=== PATIENT | female | born 1960 | race Asian ===

== ENCOUNTER 2018-06-23 11:00 | Emergency (ER) | payer OTHER ==
[~2018-06-23] VITALS: Ht 152.4 cm; Wt 58.0 kg
--- NOTE | 2018-06-23 11:48 | NUR ---
NO ANSWER FROM TRIAGE
--- NOTE | 2018-06-23 12:02 | NUR ---
NO ANSWER FROM SARANYA
[2018-06-23 12:03] VITALS: BP 170/78
--- NOTE | 2018-06-23 13:01 | NUR ---
[facility]
[2018-06-23 13:36] LABS: BASOPHILS # (AUTO) 0.05 x10^3/uL (0-0.1); BASOPHILS % (AUTO) 1 % (0-1); EOSINOPHILS # (AUTO) 0.27 x10^3/uL (0-0.4); EOSINOPHILS % (AUTO) 4 % (1-7); LYMPHOCYTES # (AUTO) 1.92 x10^3/uL (1-3.4); LYMPHOCYTES % (AUTO) 29 % (22-44); MD NO; MEAN CORPUSCULAR HEMOGLOBIN 28.7 pg (27.0-34.8); MEAN CORPUSCULAR HGB CONC 34.2 g/dL (32.4-35.8); MEAN CORPUSCULAR VOLUME 83.7 fL (80-100); MEAN PLATELET VOLUME 6.6 fL (7.4-10.4); MONOCYTES # (AUTO) 0.66 x10^3/uL (0.2-0.8); MONOCYTES % (AUTO) 10 % (2-9); NEUTROPHILS # (AUTO) 3.72 x10^3/uL (1.8-6.8); NEUTROPHILS % (AUTO) 56 % (42-75); PLATELET COUNT 442 x10^3/uL (130-400); RED BLOOD COUNT 5.43 x10^6/uL (3.82-5.3); RED CELL DISTRIBUTION WIDTH 13.6 % (9.6-15.2)
[2018-06-23 13:39] LABS: MICROSCOPIC AUTO
[2018-06-23 13:41] LABS: INTERNATIONAL NORMALIZED RATIO 1.02 (0.93-1.1); PROTHROMBIN TIME 10.7 Seconds (9.6-11.5)
[2018-06-23 13:45] LABS: ALBUMIN 4.1 g/dL (3.4-5.0); ANION GAP 6 mmol/L (5-15); CALCIUM 8.9 mg/dL (8.5-10.1); CHLORIDE 111 mmol/L (98-107)
[2018-06-23 13:49] LABS: ALANINE AMINOTRANSFERASE 49 U/L (12-78); ALKALINE PHOSPHATASE 99 U/L (45-117); BILIRUBIN,TOTAL 1.1 mg/dL (0.2-1.0); CREATININE 0.85 mg/dL (0.55-1.02); TOTAL PROTEIN 7.9 g/dL (6.4-8.2)
[2018-06-23 13:49] LABS: CULTURE INDICATED? YES
[2018-06-23] MEDS: CEFDINIR 300 MG CAPSULE PO STA ×2 (13:51→13:56)
[2018-06-23] MEDS ORDERED: POTASSIUM CHLORIDE 20 MEQ TAB.ER.PRT ONE (13:55)
[2018-06-23] MEDS ORDERED: CEFDINIR 300 MG CAPSULE ONE (13:55)
[2018-06-23] MEDS ORDERED: POTASSIUM CHLORIDE 20 MEQ TAB.ER.PRT PO ONE (14:00)
[2018-06-23] MEDS ORDERED: CEFDINIR 300 MG CAPSULE PO ONE (14:30)
== END 2018-06-23 14:39 | disposition home or self-care (01) ==
LOC: ED 13:48
DX: R31.0 Gross hematuria (principal); N30.01 Acute cystitis with hematuria
CPT/HCPCS: 36415; 80053; 81001; 85025; 85610; 87086; 99283

== ENCOUNTER → 2018-07-03 | Outpatient (CLI) | payer OTHER ==
[~2018-07-03] MED LIST: DIPHENHYDRAMINE 25 MG CAPSULE ONE; OMNIPAQUE 350 MG/ML, 100ML BOTTLE ONE
== END | disposition home or self-care (01) ==
LOC: RAD 10:48
PROVIDERS: ATTEND Nurse Practitioner Family
DX: N13.2 Hydronephrosis with renal and ureteral calculous obstruction (principal); N28.1 Cyst of kidney, acquired; N85.2 Hypertrophy of uterus; I70.0 Atherosclerosis of aorta
CPT/HCPCS: 74177; Q0163; Q9967